=== PATIENT | male | born 1995 | race Caucasian/White ===

== ENCOUNTER → 2021-03-05 | Outpatient (CLI) | payer OTHER ==
--- NOTE | 2021-03-05 15:03 | REP ---
INDICATION: PAIN. COMPARISON: None. TECHNIQUE: Left hand 5th digit four views FINDINGS: There is no acute fracture or destructive osseous lesion IMPRESSION: No acute bony abnormality <Electronically signed by Pete Lua > 03/05/21 1500
== END ==
LOC: M WUC 13:44
PROVIDERS: ATTEND Physician Assistant
DX: M79.645 Pain in left finger(s) (principal)